=== PATIENT | male | born 1955 | race Caucasian/White ===

== ENCOUNTER → 2018-01-23 | Outpatient (CLI) | payer BC, SELFPAY | END | disposition home or self-care (01) | LOC: RAH 07:31 | PROVIDERS: ATTEND Family Medicine | DX: M48.07 Spinal stenosis, lumbosacral region (principal); M43.17 Spondylolisthesis, lumbosacral region; Z98.1 Arthrodesis status | CPT/HCPCS: 72148 ==

== ENCOUNTER 2023-11-03 10:16 | Emergency (ER) | payer OTHER, SELFPAY ==
[~2023-11-03] VITALS: Ht 180.3 cm; Wt 81.6 kg
[2023-11-03 10:32] VITALS: BP 161/72; PULSE 68; RESP 16
[2023-11-03] MEDS ORDERED: CLIN-141 PO (11:57)
[2023-11-03] MEDS: CLINDAMYCIN 150 MG CAP PO ONE (12:06)
== END 2023-11-03 12:19 | disposition home or self-care (01) ==
LOC: EDH 10:16
DX: L03.011 Cellulitis of right finger (principal); M19.90 Unspecified osteoarthritis, unspecified site
CPT/HCPCS: 73130